=== PATIENT | male | born 1945 | race Caucasian/White ===

== ENCOUNTER → 2016-09-19 | Outpatient (CLI) | payer MEDICARE, OTHER | END | disposition home or self-care (01) | LOC: GMAL 10:32 | PROVIDERS: ATTEND Family Medicine | DX: E55.9 Vitamin D deficiency, unspecified (principal); R97.20 Elevated prostate specific antigen [PSA] ==

== ENCOUNTER 2016-12-07 02:26 | Observation (INO) | payer MEDICARE, OTHER ==
[2016-12-07] MEDS ORDERED: SODIUM CHLORIDE 0.9% (FLUSH) 10 ML SYG IV PRN ×2 (02:31→04:16)
--- NOTE | 2016-12-07 02:41 | ED.PDOC ---
History of Present Illness - General Chief Complaint: Neuro Symptoms/Deficits Stated Complaint: DIFFICULTY SPEAKING Time Seen by Provider: 12/07/16 02:39 Source: patient, family Exam Limitations: clinical condition, physical impairment Additional Information: PT CALLED DAUGHTER ROXANNE Umana/Lashay HE COULD NOT SPEAK WELL. SHE CALLED EMS WHO TRANSPORTED PT TO ED. PT ARRIVES WITH AN EXPRESSIVE APHASIA AND CANNOT PROVIDE ANY HX. IT IS UNCLEAR WHEN THE SYMPTOMS STARTED AND WHEN THE LAST KNOWN NORMAL WAS. DAUGHTER LAST TALKED TO HIM AT NOON AND HIS FRIEND IS NOT ANSWERING THE PHONE. THE BEST INDICATION FROM THE PATIENT IS THAT HE WOKE UP WITH THE SX'S BUT CANNOT ACCURATELY ESTABLISH THE TIME HE WENT TO BED AND IF HE WAS NEURO NL AT THAT TIME. - History of Present Illness Timing/Duration: unsure Improving Factors: nothing Allergies/Adverse Reactions: Allergies Warfarin [From Coumadin] Allergy (Verified 12/24/15 16:42) Rash Home Medications: Ambulatory Orders Diltiazem HCl 30 mg PO BID 04/15/13 LORazepam [Ativan] 0.5 mg PO DAILY PRN 04/15/13 Nitroglycerin [Nitrostat] 0.4 mg SL Q2H PRN #25 sub 09/12/14 Clopidogrel Bisulfate [Plavix] 75 mg PO DAILY #30 tab 12/25/15 Apixaban [Eliquis] 5 mg PO BID #14 tab 04/07/16 Review of Systems - Review of Systems Unable to Obtain Due To: clinical condition - PMHX OBTAINED FROM OLD RECORDS Past Medical History (General) - Patient Medical History Hx Seizures: No Hx Stroke: No Hx Dementia: No Hx Asthma: No Hx of COPD: No Hx Cardiac Disorders: Yes - CABG, A fib Hx Congestive Heart Failure: No Hx Pacemaker: No Hx Hypertension: Yes Hx Thyroid Disease: No Hx Diabetes: No Hx Gastroesophageal Reflux: Yes Hx Renal Disease: No Hx Cancer: No Hx of HIV: No Hx Hepatitis C: No Hx MRSA: No - Vaccination History Hx Influenza Vaccination: No Hx Pneumococcal Vaccination: No - Social History Hx Tobacco Use: Yes - Quit in Hx Alcohol Use: No Hx Substance Use: No Hx Physical Abuse: No Hx Emotional Abuse: No - Female History Patient : No Family Medical History - Family History Mother Family History: No Known Living Status: Hx Family Asthma: No Hx Family Congestive Heart Failure: Yes Hx Family Hypertension: No Hx Family Stroke: No Hx Cardiac Disease: Yes Hx Family Diabetes: Yes Hx Family Cancer: Yes Physical Exam - Physical Exam General Appearance: Alert, No apparent distress Eye Exam: bilateral normal Ears, Nose, Throat: hearing grossly normal, normal ENT inspection Neck: non-tender, full range of motion, supple, normal inspection Respiratory: lungs clear, normal breath sounds Cardiovascular/Chest: regular rate, rhythm, no murmur Gastrointestinal/Abdominal: normal bowel sounds, non tender, soft, no organomegaly Back Exam: normal inspection, no CVA tenderness, no vertebral tenderness Extremity: normal range of motion, normal inspection, no pedal edema 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 DID NOT BRING MEDICATIONS BUT GIVEN THAT AND UNCLEAR TIME OF LAST NL PT IS NOT TPA CANDIDATE. 12/07/16 03:54 NO CHANGE IN EXAM, D/W DR WILKINS WILL ADMIT - EKG/XRAY/CT EKG: Sinus - RATE 77, NL AXIS, NL INTERVALS. , no ST T wave changes - NAIP, Changed from - 04/05/16 NSR HAS REPLACED A FLUTTER XRAY: chest - OTF CT Ordered: Yes - OTF Departure - Departure Clinical Impression: CVA (cerebral vascular accident) Qualifiers: CVA mechanism: unspecified Qualified Code(s): I63.9 - Cerebral infarction, unspecified Hypertension Qualifiers: Hypertension type: essential hypertension Qualified Code(s): I10 - Essential ( primary) hypertension Time of Disposition: 03:56 Disposition: Discharge to Home or Self Care Condition: Fair Referrals: Prashanth Arambula III, MD [Primary Care Provider] - 1-2 Weeks Home Medications: Ambulatory Orders Diltiazem HCl 30 mg PO BID 04/15/13 LORazepam [Ativan] 0.5 mg PO DAILY PRN 04/15/13 Nitroglycerin [Nitrostat] 0.4 mg SL Q2H PRN #25 sub 09/12/14 Clopidogrel Bisulfate [Plavix] 75 mg PO DAILY #30 tab 12/25/15 Apixaban [Eliquis] 5 mg PO BID #14 tab 04/07/16
--- NOTE | 2016-12-07 02:49 | CT ---
EXAM: CT head without contrast. INDICATION: Confusion. TECHNIQUE: Contiguous axial CT images of the brain. Intravenous contrast: Absent. DLP 773 mGy-cm. This exam was performed according to our departmental dose-optimization program, which includes automated exposure control, adjustment of the mA and/or kV according to patient size and/or use of iterative reconstruction technique. COMPARISON: None. FINDINGS: Subcutaneous: Unremarkable. No acute intracranial hemorrhage. There is mild diffuse cerebral atrophy with mild periventricular and deep white matter chronic microvascular changes. No midline shift. No mass effect. Ventricles: No hydrocephalus. Duke-white differentiation preserved. Paranasal sinuses/mastoid air cells: Visualized portions are aerated. Bones/orbits: Visualized portions are unremarkable. IMPRESSION: 1. No CT evidence of acute intracranial hemorrhage. Electronically signed by: Vimal Lopez MD 12/07/2016 2:48 AM CDT Workstation: [id number]
--- NOTE | 2016-12-07 02:52 | RAD ---
EXAM: Single view chest. INDICATION: Confusion. COMPARISON: Chest x-ray: 04/05/2016. FINDINGS: Cardiac silhouette: Unremarkable. Marisol: Unremarkable. Lobar consolidation: None. Pleural effusion: None. Pneumothorax: None. Other: None. Bones: Unremarkable. Other: None. IMPRESSION: 1. No acute cardiopulmonary process. Electronically signed by: Vimal Lopez MD 12/07/2016 2:51 AM CDT Workstation: [id number]
[2016-12-07] MEDS ORDERED: WATER FOR INJ 10 ML VIAL INJ ONE (03:36)
[2016-12-07] MEDS ORDERED: MAGNESIUM HYDROXIDE 30 ML UD PO PRN (04:16)
[2016-12-07] MEDS ORDERED: LORazepam 0.5 MG TAB PO PRN (04:27)
[2016-12-07] MEDS ORDERED: LEVALBUTEROL NEBS 0.63 MG/3 ML VIAL INH SCH (04:30)
[2016-12-07] MEDS ORDERED: IV SET AND CAP CHANGE INJ INJ SCH (04:30)
--- NOTE | 2016-12-07 05:12 | HP ---
SUPERVISING PHYSICIAN: Latrell Monaco M.D. CHIEF COMPLAINT: Difficulty speaking. HISTORY OF PRESENT ILLNESS: Mr. Paz is a 71 year-old male patient that was brought to the E. . by EMS. It is noted that the patient called his daughter during the night because he could not speak well. She then called EMS who transported the patient to the Emergency Department. On arrival, the patient had an expressive aphasia and could not provide any history. It is unclear as to when the symptoms actually started. His daughter notes that he was normal at noon yesterday. It does appear that the patient awoke with the symptoms as he notes that he is without any symptoms when he went to bed. The patient's evaluation in the Emergency Department consisted of a CT of the head that showed per radiology interpretation no CT evidence of intracranial hemorrhage. Laboratory studies showed a normal white count, hemoglobin, hematocrit and differential. Coagulation studies and chemistries were essentially within normal limits. Troponin was less than 0.02. Given the patient's symptomology, the patient was admitted to the Medical/Surgical floor from the Emergency Department for continuation of treatment, evaluation, further observation for neurological status as well as an MRI and an ultrasound of the carotids. The patient was admitted in stable condition. PAST MEDICAL HISTORY: 1. Coronary artery disease diagnosed in 1996 with a 4 vessel coronary artery bypass graft. 2. Hyperlipidemia. 3. Hypertension. 4. Paroxysmal atrial fibrillation first diagnosed in 2010 and noted to be in atrial flutter in 2011. He was digitized as well as started on Cardizem and now is on Lopressor. 5. Gastroesophageal reflux disease. 6. History of chronic prostatitis. 7. 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 Gonzales. PAST SURGICAL HISTORY: 1. Coronary artery bypass graft 4 vessels in 1996. 2. Hernia repair right inguinal. 3. Left hydrocelectomy first drained in 2015. 4. Surgical repair in [address] Gonzales. 5. Echocardiogram. Last echocardiogram was in 2013 with ejection fraction of 55%. 6. Nuclear stress test in 2010 with an ejection fraction noted to be 66%. Another nuclear stress test in 2013 with an estimated ejection fraction of 72%. HOME MEDICATIONS: 1. Doxazosin 4 mg daily. 2. Aspirin enteric coated daily. 3. Ativan 0.5 mg twice daily. 4. Metoprolol succinate ER 50 mg daily. 5. Finasteride 5 mg at bedtime. 6. Fish oil 1 capsule daily. ALLERGIES: WARFARIN. FAMILY HISTORY: Father at age 79 secondary to heart disease having a myocardial infarction at age 45. Mother at age 80 secondary to heart disease. He has 3 brothers, 2 with hypertension, 1 brother that has had a CABG. 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 He is a . His from kidney failure in 2014. He lives in [place], [place]. He has never smoked tobacco. He drinks alcohol very infrequently. He denies any illicit drug use. REVIEW OF SYSTEMS: CONSTITUTIONAL: Denies any fevers, chills, aches or unintentional weight change. HEENT: Denies any headaches, syncopal or near syncopal episodes as noted in his History of Present Illness, expressive aphasia that had cleared up on admission to the Medical/Surgical floor. CHEST: Denied any chest pains, shortness of breath, coughing or wheezing. CARDIOVASCULAR: Denies any syncopal episodes, chest pains or palpitations. GASTROINTESTINAL: Denies any abdominal pains, nausea or vomiting, constipation or diarrhea. GENITOURINARY: Denies any dysuria, hematuria or polyuria. NEUROLOGIC: As noted in the history of present illness. Does have a history of some dizziness in the past and as per noted in the history of present illness , the expressive aphasia that had resolved at time of admission to the Medical/ Surgical floor. He denied any headaches or any seizure activity. PHYSICAL EXAMINATION: VITAL SIGNS: Temperature 97.4, pulse 83, blood pressure 150/78, respirations 16 , satting 100% on room air. Admission weight 67.1 kg. GENERAL: The patient on examination to the Medical/Surgical floor appears to be comfortable in no acute distress. He is communicative with no obvious expressive aphasia noted. HEENT: Tympanic membranes are clear bilaterally. Oropharynx was pink and moist without any lesions. NECK: Supple, non-tender with full range of motion. No jugular venous distention noted. CHEST: Lungs are clear to auscultation bilaterally without any rhonchi, wheezing or rales. CARDIOVASCULAR: Regular rate and rhythm without appreciable murmurs, gallops, or rubs. ABDOMEN: Soft, non-tender. Positive bowel sounds. EXTREMITIES: No clubbing, cyanosis or edema. NEUROLOGIC: The patient was showing no neuromotor deficits. On exam on the Medical/Surgical floor, was able to converse without any difficulty. Cranial nerves II-XII are grossly intact. Facial features were symmetrical. Extraocular movements are within normal limits. There was no noted nystagmus. LABORATORY: CBC showed normal white count of 7.4, hemoglobin 14.4, hematocrit 43.3, platelet count 219,000. Differential showed to be without a left shift. Coagulation studies showed a PT 10, PTT 27.0. Chemistries showed normal electrolytes, potassium 3.8, BUN 14, creatinine 1.31, glucose 124. Liver functions showed to be within normal limits. Troponin was less than 0.02, TSH was pending. Urinalysis pending. EKG showed normal sinus rhythm. RADIOLOGY: Radiographic studies completed on admission to the Emergency Department, chest x-ray single view chest per radiology interpretation showing no acute cardiopulmonary process. He also had a CT of the head without contrast and per radiology interpretation there was no CT evidence of an intracranial hemorrhage. After admission to the Medical/Surgical floor, he had an MRI of the brain without contrast and per radiology interpretation there was no acute intracranial abnormalities identified. There was note of mild chronic microangiopathy and mild volume loss. ASSESSMENT: 1. Suspected transient ischemic attack with the patient presenting with an expressive aphasia having resolved prior to admission to the Medical/Surgical floor with MRI of the brain showing no acute abnormalities. 2. History of paroxysmal atrial fibrillation currently in normal sinus rhythm only on aspirin. 3. Hypertension. 4. Hyperlipidemia. 5. Coronary atherosclerotic disease. 6. Benign prostatic hypertrophy. 7. Gastroesophageal reflux disease. 8. History of left sided hydrocele. PLAN: The patient will be placed in Observation for continued neurological monitoring as well as telemetry. He will have neurologic checks every 4 hours. He will be started on aspirin. Will plan to have bilateral carotid studies to further assess his carotid flow. Will start him on DVT prophylaxis as per protocol. Will resume his home medications as indicated once the medicines have been reviewed and updated in the computer. Will anticipate length of stay to be 1 to 2 days. Once clinically able to be discharged, he will need close clinical followup with his primary care provider, Dr. Arambula as well as close neurology follow-up. Until then, will continue to monitor and treat appropriately. #[id number] [facility]
[2016-12-07] MEDS: KCL 20 MEQ/NS 1,000 ML IVS PRN ×2 (05:54→19:45)
[2016-12-07] MEDS ORDERED: APIXABAN 2.5 MG TAB PO ONE (07:35)
--- NOTE | 2016-12-07 08:29 | MRI ---
EXAM DESCRIPTION: Brain w/o Contrast CLINICAL HISTORY: acute dysphasia. Confusion. COMPARISON: CT head earlier same day. TECHNIQUE: Non contrast MRI of the brain is performed according to our usual protocol including multiplanar multi sequence technique. FINDINGS: No hemorrhage, mass effect, diffusion restriction, or acute infarction is present. There is a focus of increased signal in the right centrum semiovale on the diffusion-weighted images, which represents T2 shine through from a focus of chronic microangiopathy. There is normal configuration of the ventricles and sulci. Mild generalized volume loss is present. There are mild patchy T2/FLAIR hyperintensities in the supratentorial white matter. No abnormal extra-axial fluid collections are present. Normal flow voids are present. The calvarium is intact. Visualized paranasal sinuses and mastoid air cells are clear. IMPRESSION: 1. No acute intracranial abnormality. 2. Mild chronic microangiopathy. 3. Mild volume loss. Electronically signed by: Rik Ambriz MD 12/07/2016 8:27 AM CDT
[2016-12-07] MEDS: LEVALBUTEROL NEBS 0.63 MG/3 ML VIAL NEB SCH ×2 (08:40→16:48)
[2016-12-07] MEDS: diltiaZEM HCL TAB 30 MG TAB PO SCH ×2 (08:47→12:51)
[2016-12-07] MEDS ORDERED: PANTOPRAZOLE SODIUM TAB 40 MG PO SCH (09:00)
[2016-12-07] MEDS ORDERED: APIXABAN 2.5 MG TAB PO SCH (09:00)
[2016-12-07] MEDS: METOPROLOL SUCCINATE XL 50 MG TAB PO SCH (15:36)
[2016-12-07] MEDS: ASPIRIN (ENTERIC COATED) 325 MG TAB PO SCH (15:36)
[2016-12-07] MEDS ORDERED: LEVALBUTEROL NEBS 0.63 MG/3 ML VIAL NEB SCH (16:00)
--- NOTE | 2016-12-07 16:16 | US ---
EXAM DESCRIPTION: Carotid Duplex CLINICAL HISTORY: acute dysphasia. Confusion. COMPARISON: None Available. TECHNIQUE: Multiple grayscale, color, and spectral Doppler images of the bilateral carotid systems. FINDINGS: Mild scattered atherosclerotic plaque in both carotid systems, most pronounced in both carotid bulbs. All duplex waveforms and velocities are within normal limits on both sides. ICA/CCA ratios are normal. Less than 30% area stenosis demonstrated in both internal carotid arteries on grayscale imaging. Both vertebral arteries demonstrate antegrade flow. The external carotid arteries are patent. IMPRESSION: 1. Atherosclerosis with 0-40% stenosis in both internal carotid arteries by ratio and velocity criteria. Electronically signed by: Rik Ambriz MD 12/07/2016 4:15 PM CDT
[2016-12-07] MEDS: LORazepam 0.5 MG TAB PO SCH (20:54)
[2016-12-07] MEDS ORDERED: FINASTERIDE 5 MG TAB PO SCH (21:00)
[2016-12-08] MEDS: LEVALBUTEROL NEBS 0.63 MG/3 ML VIAL NEB SCH ×2 (00:34→08:25)
[2016-12-08] MEDS ORDERED: PANTOPRAZOLE SODIUM TAB 40 MG PO ONE (04:54)
[2016-12-08] MEDS ORDERED: PANTOPRAZOLE SODIUM TAB 40 MG PO SCH (06:30)
[2016-12-08] MEDS ORDERED: DOXAZOSIN MESYLATE 2 MG TAB ONE (07:25)
[2016-12-08] MEDS ORDERED: FISH OIL 1,200 MG CAP ONE (07:26)
[2016-12-08] MEDS ORDERED: DOXAZOSIN MESYLATE 2 MG TAB PO SCH (09:00)
[2016-12-08] MEDS ORDERED: ASPIRIN EC 81 MG TAB PO SCH (09:00)
[2016-12-08 09:16] VITALS: BP 116/70; TEMP 98.1; O2SAT 94
[2016-12-08] MEDS: ASPIRIN (ENTERIC COATED) 325 MG TAB PO SCH (09:16)
[2016-12-08] MEDS: LORazepam 0.5 MG TAB PO SCH (09:16)
[2016-12-08] MEDS: METOPROLOL SUCCINATE XL 50 MG TAB PO SCH (09:16)
[2016-12-08] MEDS: FISH OIL 1,200 MG CAP PO SCH ×2 (09:16→09:19)
[2016-12-08] MEDS ORDERED: SIMVASTATIN 20 MG TAB PO SCH (21:00)
--- NOTE | 2016-12-13 07:57 | DS ---
SUPERVISING PHYSICIAN: Latrell Monaco MD DISCHARGE DIAGNOSIS: 1. Questionable transient ischemic attack with the patient presenting with an expressive aphasia having resolved prior to admission to the Medical/Surgical floor with MRI of the brain showing no acute abnormalities. 2. History of paroxysmal atrial fibrillation in normal sinus rhythm and on aspirin. 3. Hypertension. 4. Hyperlipidemia. 5. Coronary atherosclerotic disease. 6. Benign prostatic hypertrophy. 7. Gastroesophageal reflux disease. 8. History of left sided hydrocele. HISTORY OF PRESENT ILLNESS: Mr. Paz is a 71-year-old male patient that was brought to the Emergency Room by EMS. It is noted that the patient called his daughter during the night because he could not speak well. She then called EMS who transported the patient to the Emergency Department. On arrival , the patient had an expressive aphasia and could not provide any history. It is unclear as to when the symptoms actually started. His daughter noted that he was normal at noon the day before admission. It does appear that the patient awoke with the symptoms as he notes that he is without any symptoms when he went to bed. The patient's evaluation in the Emergency Department consisted of a CT of the head that showed per radiologic interpretation no CT evidence of intracranial hemorrhage. Laboratory studies showed a normal white count, hemoglobin, hematocrit and differential. Coagulation studies and chemistries were essentially within normal limits. Troponin was less than 0.02. Given the patient's symptomatology, the patient was placed in observation on the Medical/Surgical floor for continuation of treatment, evaluation, further observation for neurological status as well as an MRI and an ultrasound of the carotids. The patient was placed in observation in stable condition. LABORATORY: White count on admission was 7.4, at discharge 6.3. Hemoglobin 12.6, hematocrit 38.0 at discharge. Platelet count within normal limits at 190, 000. Differential showed no left shift. Coagulation studies showed normal PT, PT-T. Chemistries on admission showed normal electrolytes as well as at discharge with potassium 4.5, BUN 11, creatinine 0.99. Glucose initially was 125, at discharge was 106. Calcium 8.5, magnesium 1.9. Liver function tests all within normal limits. Troponin less than 0.02. Lipid panel showed normal cholesterol, triglycerides with LDL cholesterol 88, HDL cholesterol 27, TSH 0.78. Urinalysis showed trace blood on dipstick, otherwise within normal limits. RADIOLOGY: Chest x-ray in the Emergency Department prior to admission, single view, per radiologic interpretation showed no acute cardiopulmonary process. He also had a CT of the head without contrast and per radiologic interpretation there was no CT evidence of an intracranial hemorrhage. This was followed up with an MRI of the brain per radiologic interpretation there was no acute intracranial abnormalities, just mild chronic microangiopathy and mild volume loss. He also had a carotid artery study done and per radiologic interpretation there was note of atherosclerosis of 0 to 40% in both internal carotid arteries by ratio and velocity criteria. HOSPITAL COURSE: Mr. Paz was placed in observation as noted in history of present illness for concerns for transient ischemic attack with expressive dysphasia, having had his symptoms resolve prior to actual admission to the Medical/Surgical Floor. He had no return of any neurologic symptoms. He was monitored overnight with q.4h. neuro checks as well as telemetry. On the morning of discharge, the patient was stable and was able to be discharged to continue with treatment in the outpatient setting. PLAN: Mr. Paz was discharged to have clinical followup with Dr. Arambula, his primary care provider, as scheduled on 12/13/16 at 9 AM. He was started on an aspirin as well as Zocor. He was instructed to start his new medications and resume all prescriptions as previous to hospitalization. He was told to return to the hospital should he have any return of his symptoms. At discharge, new prescriptions included Zocor 20 mg daily. He was also to take aspirin 81 mg 4 tablets daily. Diet at discharge was his usual diet. Activities to increase as tolerated. Discharge condition was stable and improved. #[id number] [facility]
== END 2016-12-08 11:35 | disposition home or self-care (01) ==
LOC: ER 02:26 → MS 05:11
PROVIDERS: ADMIT Nurse Practitioner Family; ATTEND Nurse Practitioner Family
DX: R47.01 Aphasia (principal); I48.0 Paroxysmal atrial fibrillation; I10 Essential (primary) hypertension; E78.5 Hyperlipidemia, unspecified; I25.10 Atherosclerotic heart disease of native coronary artery without angina pectoris; N40.0 Benign prostatic hyperplasia without lower urinary tract symptoms; K21.9 Gastro-esophageal reflux disease without esophagitis; R41.0 Disorientation, unspecified; I65.23 Occlusion and stenosis of bilateral carotid arteries; Z95.1 Presence of aortocoronary bypass graft; Z79.02 Long term (current) use of antithrombotics/antiplatelets; Z79.82 Long term (current) use of aspirin; Z79.899 Other long term (current) drug therapy; Z88.8 Allergy status to other drugs, medicaments and biological substances; Z82.49 Family history of ischemic heart disease and other diseases of the circulatory system
CPT/HCPCS: 36415 ×2; 36416; 70450; 70551; 71010; 80053 ×2; 80061; 81001; 82550; 82553; 82948; 83735; 84443; 84484; 85025 ×2; 85610; 85730; 93005; 93880; 94640 ×4; 94760 ×3; 97110; 97162; 99284; A4216; G0378; G0463; G8978; G8979; G8980; J3480 ×2; J7614 ×4

== ENCOUNTER → 2017-06-06 | Outpatient (CLI) | payer MEDICARE, OTHER | LOC: GMAL 10:45 | PROVIDERS: ATTEND Family Medicine | DX: R97.20 Elevated prostate specific antigen [PSA] (principal) ==

== ENCOUNTER 2017-10-18 05:45 | Day surgery (SDC) | payer MEDICARE, OTHER ==
[2017-10-18] MEDS: LACTATED RINGERS 1,000 ML ONE (07:55)
--- NOTE | 2017-10-18 09:16 | OP ---
DATE OF PROCEDURE: 10/18/17 PREPROCEDURE DIAGNOSIS: 1. Screening colonoscopy. POSTPROCEDURE DIAGNOSIS: 1. Colonic polyps. 2. Large internal hemorrhoids. 3. Diverticulosis. 4. Suboptimal bowel preparation. PROCEDURE: 1. Colonoscopy. SURGEON: Mahin Ellis MD SEDATION: The patient was sedated via IV propofol by the Anesthesia Department. COMPLICATIONS: No immediate complications. CONSENT: Prior to the procedure, risks, benefits and alternatives to the therapy were discussed with the patient. The risks included bleeding, infection , perforation and . The patient agreed to the procedure and signed a consent. PREPROCEDURE ANESTHESIA ASSESSMENT: An examination revealed no contraindication to sedation. Airway examination demonstrated a Mallampati class type 2, ASA grade assessment type 3. Throughout the procedure, the patient's blood pressure, pulse and oxygen saturation were monitored continuously. PROCEDURE: The patient was placed in the left lateral decubitus position and a rectal examination was performed. The rectal examination was within normal limits. The Olympus colonoscope was passed in the anus, rectum, traversing the colon to the level of the cecum. The scope was retracted and the mucosa was visualized. The entirety of the exam was performed with direct visualization. Retroflexion was performed in the rectum. Preparation quality was poor, especially in the ascending colon. The withdrawal time was greater than 6 minutes. The patient tolerated the procedure well. FINDINGS: 1. Large and small mouth diverticula were seen in the sigmoid and descending colon. erythema was seen surrounding diverticular openings. 2. Two polyps were seen in the descending colon, removed with a cold snare. Polyps were completely removed and retrieved. 3. Large, nonbleeding internal hemorrhoids were seen in the rectum. 4. Moderate amount of semi-liquid and semi-solid stool was seen in the ascending colon. Extensive lavage was performed with sterile solution with suboptimal visualization of the colonic mucosa. RECOMMENDATION: 1. Return home. 2. Resume previous diet. 3. Resume anticoagulant at previous dose tomorrow. 4. Repeat colonoscopy no later of one year for complete clearance and evaluation of the colonic mucosa. 5. Followup pathology results. 6. The results were discussed with the patient and family members. #[id number] [facility]
[2017-10-18 09:30] VITALS: O2SAT 96
[2017-10-18] MEDS ORDERED: PROPOFOL 200 MG/20 ML VIAL IV ONE (10:00)
[2017-10-18] MEDS ORDERED: LIDOCAINE 1% 10 ML VIAL INJ ONE (10:00)
[2017-10-18 12:07] VITALS: TEMP 97.2
[2017-10-18 12:52] VITALS: BP 135/82
== END 2017-10-18 09:50 | disposition home or self-care (01) ==
LOC: AMB 05:45
PROVIDERS: ATTEND Internal Medicine Gastroenterology
DX: Z12.11 Encounter for screening for malignant neoplasm of colon (principal); D12.4 Benign neoplasm of descending colon; K64.8 Other hemorrhoids; K57.30 Diverticulosis of large intestine without perforation or abscess without bleeding; I48.91 Unspecified atrial fibrillation; I10 Essential (primary) hypertension; K21.9 Gastro-esophageal reflux disease without esophagitis; I25.10 Atherosclerotic heart disease of native coronary artery without angina pectoris; K59.00 Constipation, unspecified; Z95.1 Presence of aortocoronary bypass graft; Z79.01 Long term (current) use of anticoagulants; Z79.899 Other long term (current) drug therapy
CPT/HCPCS: 00812; 45385; 88305; J3490; J7120

== ENCOUNTER → 2018-02-26 | Outpatient (CLI) | payer MEDICARE, OTHER | LOC: GMAL 13:21 | PROVIDERS: ATTEND Family Medicine | DX: D51.3 Other dietary vitamin B12 deficiency anemia (principal); R97.20 Elevated prostate specific antigen [PSA]; R53.83 Other fatigue; E55.9 Vitamin D deficiency, unspecified ==

== ENCOUNTER → 2019-03-21 | Outpatient (CLI) | payer MEDICARE, OTHER | LOC: GMAL 10:35 | PROVIDERS: ATTEND Family Medicine | DX: R97.20 Elevated prostate specific antigen [PSA] (principal); R30.0 Dysuria ==

== ENCOUNTER → 2019-06-12 | Outpatient (CLI) | payer MEDICARE, OTHER | LOC: GMAL 10:23 | PROVIDERS: ATTEND Family Medicine | DX: R97.20 Elevated prostate specific antigen [PSA] (principal); E78.2 Mixed hyperlipidemia; I10 Essential (primary) hypertension; E11.9 Type 2 diabetes mellitus without complications ==

== ENCOUNTER → 2020-03-13 | Outpatient (CLI) | payer MEDICARE, OTHER | LOC: GMAL 10:35 | PROVIDERS: ATTEND Family Medicine | DX: D51.3 Other dietary vitamin B12 deficiency anemia (principal); E55.9 Vitamin D deficiency, unspecified; R53.82 Chronic fatigue, unspecified; I10 Essential (primary) hypertension; R73.9 Hyperglycemia, unspecified; Z79.899 Other long term (current) drug therapy; R97.20 Elevated prostate specific antigen [PSA]; E78.2 Mixed hyperlipidemia ==

== ENCOUNTER 2020-06-01 20:11 | Emergency (ER) | payer MEDICARE, OTHER ==
--- NOTE | 2020-06-01 20:16 | ED.PDOC ---
History of Present Illness - General Stated Complaint: Elevated blood pressure Time Seen by Provider: 06/01/20 20:14 Source: patient Exam Limitations: no limitations - History of Present Illness Initial Comments: Patient states that about 30 minutes prior to admission he took his blood pressure running found to be 200/190. Patient denies headache, stroke symptoms, chest pain, diaphoresis, shortness of breath. He does complain of mild dizziness. Patient claims full compliance with his medical regimen for hypertension. He Admits to similar symptoms once in the past. Timing/Duration: 1/2 hour Severity: mild Improving Factors: nothing Worsening Factors: nothing Associated Symptoms: denies symptoms Allergies/Adverse Reactions: Allergies Warfarin [From Coumadin] Allergy (Verified 06/01/20 20:23) Rash Home Medications: Ambulatory Orders Doxazosin Mesylate 4 mg PO DAILY 12/07/16 Finasteride 5 mg PO BEDTIME 12/07/16 LORazepam [Ativan] 0.5 mg PO BID 12/07/16 Lane-3 Fatty Acids [Fish Oil] 1 cap PO DAILY 12/07/16 Simvastatin [Zocor] 20 mg PO BEDTIME #30 tablet 12/08/16 Apixaban [Eliquis] 5 mg PO BID 10/13/17 Sotalol HCl 80 mg PO BID 10/13/17 Review of Systems - Review of Systems Constitutional: States: no symptoms reported EENTM: States: no symptoms reported Respiratory: States: no symptoms reported Cardiology: States: see HPI, other - Elevated blood pressure Gastrointestinal/Abdominal: States: no symptoms reported Genitourinary: States: no symptoms reported Musculoskeletal: States: no symptoms reported Skin: States: no symptoms reported Neurological: States: other - Very mild dizziness Endocrine: States: no symptoms reported Hematologic/Lymphatic: States: no symptoms reported Past Medical History (General) - Patient Medical History Hx Seizures: No Hx Stroke: No Hx Dementia: No Hx Asthma: No Hx of COPD: No Hx Cardiac Disorders: Yes - CABG, A fib Hx Congestive Heart Failure: No Hx Pacemaker: No Hx Hypertension: Yes Hx Thyroid Disease: No Hx Diabetes: Yes - FSBS 95 Hx Gastroesophageal Reflux: Yes Hx Renal Disease: No Hx Cancer: No Hx of HIV: No Hx Hepatitis C: No Hx MRSA: No - Vaccination History Hx Influenza Vaccination: No Hx Pneumococcal Vaccination: No - Social History Hx Tobacco Use: Yes - Quit in 1960's Hx Alcohol Use: No Hx Substance Use: No Hx Physical Abuse: No Hx Emotional Abuse: No - Female History Patient : No Family Medical History - Family History Mother Family History: No Known Living Status: Hx Family Asthma: No Hx Family Congestive Heart Failure: Yes Hx Family Hypertension: No Hx Family Stroke: No Hx Cardiac Disease: Yes Hx Family Diabetes: Yes Hx Family Cancer: Yes Physical Exam - Physical Exam General Appearance: Alert, Comfortable Eye Exam: bilateral normal Ears, Nose, Throat: normal ENT inspection, normal pharynx, other - Hard of hearing Neck: non-tender, full range of motion, supple Respiratory: normal breath sounds Cardiovascular/Chest: regular rate, rhythm Gastrointestinal/Abdominal: normal bowel sounds, non tender, soft Back Exam: normal inspection, no CVA tenderness Extremity: normal range of motion, non-tender, no pedal edema, no calf tenderness Neurologic: 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 Progress - Progress Progress: 06/01/20 20:31 Clonidine 0.1 mg p.o. 06/01/20 21:01 Blood pressure 153/66, pulse 70. Patient states he feels much better and desires discharge. - Results/Orders Results/Orders: Electrocardiogram: Sinus bradycardia, 58/min. No significant abnormalities of intervals. No ST-segment abnormalities. Fine motion artifact present throughout the tracing. Departure - Departure Clinical Impression: Hypertension Time of Disposition: 21:01 Disposition: Discharge to Home or Self Care Condition: Good Departure Forms: ED Discharge - Pt. Copy, Patient Portal Self Enrollment Instructions: High Blood Pressure (DC) Diet: resume usual diet Referrals: Prashanth Arambula III, MD [Primary Care Provider] - 1-2 Weeks Home Medications: Ambulatory Orders Doxazosin Mesylate 4 mg PO DAILY 12/07/16 Finasteride 5 mg PO BEDTIME 12/07/16 LORazepam [Ativan] 0.5 mg PO BID 12/07/16 Lane-3 Fatty Acids [Fish Oil] 1 cap PO DAILY 12/07/16 Simvastatin [Zocor] 20 mg PO BEDTIME #30 tablet 12/08/16 Apixaban [Eliquis] 5 mg PO BID 10/13/17 Sotalol HCl 80 mg PO BID 06/15/18 Additional Instructions: Go home and go to bed. Continue take your medications as prescribed for blood pressure. Contact your doctors office in the morning and let them know what happened tonight. If you develop acutely increasing and uncontrollable blood pressure, headache, stroke symptoms, chest pain, trouble breathing, passout or otherwise feel very badly then return to the emergency department.
[2020-06-01 20:23] VITALS: TEMP 97.4
[2020-06-01] MEDS ORDERED: cloNIDine HCL 0.1 MG TAB PO ONE (20:27)
[2020-06-01 20:59] VITALS: BP 153/66
[2020-06-01 21:05] VITALS: O2SAT 98
== END 2020-06-01 21:05 | disposition home or self-care (01) ==
LOC: ER 20:11
DX: I10 Essential (primary) hypertension (principal); R00.1 Bradycardia, unspecified; I48.91 Unspecified atrial fibrillation; E11.9 Type 2 diabetes mellitus without complications; K21.9 Gastro-esophageal reflux disease without esophagitis; Z95.1 Presence of aortocoronary bypass graft; Z87.891 Personal history of nicotine dependence